=== PATIENT | female | born 1960 | race Two or more races ===

== ENCOUNTER 2023-12-12 17:37 | Inpatient (IN) | payer BC ==
[~2023-12-12] VITALS: Ht 175.3 cm; Wt 134.2 kg
[2023-12-12 20:17] LABS: Basophils # (auto) 0 10 ^3/uL (0-0.2); Basophils % (auto) 0.4 % (0.0-2.0); Eosinophils # (auto) 0.1 10 ^3/uL (0-0.8); Eosinophils % (auto) 1.1 % (0.0-7.0); Hematocrit 41.3 % (36.0-46.0); Hemoglobin 13.6 g/dL (12.2-16.2); Lymphocytes # (auto) 2.9 10 ^3/uL (0.4-5.4); Lymphocytes % (auto) 44.5 % (10.0-50.0); Mean Corpuscular Hemoglobin 29.4 pg (28.0-32.0); Mean Corpuscular Hgb Conc. 32.8 g/dL (32.0-36.0); Mean Corpuscular Volume 89.6 fL (80.0-100.0); Monocytes # (auto) 0.6 10 ^3/uL (0-1.3); Red Blood Cells 4.61 10^6/uL (4.0-5.20); White Blood Cell 6.6 10^3/uL (4.4-10.8)
[2023-12-12 20:32] LABS: Anion Gap 9 (5-15); Carbon Dioxide 25 mmol/L (20-30); Chloride 108 mmol/L (98-107); Potassium 3.8 mmol/L (3.5-5.1); Sodium 142 mmol/L (136-145)
[2023-12-12 20:38] LABS: BUN/Creatinine Ratio 8.4 (10.0-20.0); Blood Urea Nitrogen 7 mg/dL (9-23); Glucose 90 mg/dL (74-106)
[2023-12-12] MEDS ORDERED: ONDANSETRON HCL 4 MG/2 ML VIAL IV PRN (20:45)
[2023-12-12] MEDS ORDERED: MORPHINE SULFATE INJ 2 MG/ml SYRG IV PRN (20:45)
[2023-12-12 21:40] LABS: Urine Bacteria FEW /hpf (None Seen); Urine Blood Negative /uL (Negative); Urine Clarity Clear (Clear); Urine Color Light-Yellow (Yellow); Urine Protein, UAD Negative (Negative); Urine Specific Gravity 1.012 (1.001-1.035); Urine Urobilinogen Normal (Negative); Urine WBC 35 /hpf (0 - 5)
[2023-12-13] MEDS: ONDANSETRON HCL 4 MG/2 ML VIAL IV ONE (00:32)
[2023-12-13] MEDS: cefTRIAXone 1GM/50ML D5W 50 ML IV ONE (00:32)
[2023-12-13] MEDS: MORPHINE SULFATE 4 MG/ML SYR/VIAL IV ONE (00:33)
[2023-12-13 07:02] LABS: Basophils # (auto) 0 10 ^3/uL (0-0.2); Basophils % (auto) 0.3 % (0.0-2.0); Eosinophils # (auto) 0 10 ^3/uL (0-0.8); Eosinophils % (auto) 0.2 % (0.0-7.0); Hematocrit 40.5 % (36.0-46.0); Hemoglobin 13.3 g/dL (12.2-16.2); Lymphocytes % (auto) 27.4 % (10.0-50.0); Mean Corpuscular Hemoglobin 29.9 pg (28.0-32.0); Mean Corpuscular Hgb Conc. 32.9 g/dL (32.0-36.0); Mean Corpuscular Volume 90.8 fL (80.0-100.0); Monocytes # (auto) 0.3 10 ^3/uL (0-1.3); Monocytes % (auto) 4.6 % (0.0-12.0); Neutrophils # (auto) 4.9 10 ^3/uL (1.6-8.6); Neutrophils % (auto) 67.5 % (37.0-80.0); Nucleated Red Blood Cells % 0.1 %; Red Blood Cells 4.46 10^6/uL (4.0-5.20); Red Cell Distribution Width 15.2 % (11.8-14.3); White Blood Cell 7.2 10^3/uL (4.4-10.8)
[2023-12-13 07:27] LABS: Alanine Aminotransferase 22 U/L (7-40); Alkaline Phosphatase 81 U/L (46-116); Anion Gap 8 (5-15); BUN/Creatinine Ratio 5.9 (10.0-20.0); Blood Urea Nitrogen 5 mg/dL (9-23); Calcium 9.8 mg/dL (8.5-10.1); Carbon Dioxide 24 mmol/L (20-30); Chloride 106 mmol/L (98-107); Glucose 141 mg/dL (74-106); Sodium 138 mmol/L (136-145)
[2023-12-13 07:28] LABS: Albumin 4.5 g/dL (3.2-4.8)
[2023-12-13 07:29] LABS: Aspartate Aminotransferase 19 U/L (13-40); Bilirubin, Total 0.6 mg/dL (0.2-1.0); Total Protein 7.2 g/dL (5.7-8.2)
[2023-12-13 10:40] VITALS: PULSE 69; RESP 16; O2SAT 97
[2023-12-13] MEDS: cefTRIAXone 1GM/50ML D5W 50 ML IV SCH (11:46)
[2023-12-13 15:55] VITALS: BP 144/67; PULSE 77; RESP 18; TEMP 97.2; O2SAT 94
[2023-12-13] MEDS: metroNIDAZOLE 500MG/100ML 100 ML IV SCH (16:00)
[2023-12-13] MEDS ORDERED: PANT40TA2 PO (17:50)
[2023-12-13] MEDS ORDERED: ATOR40TA52 PO (17:50)
[2023-12-13 17:53] VITALS: BP 144/67; PULSE 77; RESP 18; TEMP 97.4; O2SAT 94
[2023-12-13 20:00] VITALS: BP 130/78; PULSE 74; PULSE 80; RESP 18; TEMP 98.6; O2SAT 96
[2023-12-13 21:00] VITALS: BP_SYST 125; BP_SYST 138; BP_DIAS 86; PULSE 76; PULSE 77; RESP 18; RESP 22; TEMP 98; TEMP 98.2; O2SAT 92; O2SAT 96
[2023-12-13] MEDS: PANTOPRAZOLE 40 MG TAB PO SCH (21:39)
[2023-12-14 00:44] VITALS: BP 124/61; PULSE 80; RESP 18; TEMP 97.4; O2SAT 96
[2023-12-14 05:00] VITALS: BP 124/73; PULSE 94; RESP 21; TEMP 98.9; O2SAT 95
[2023-12-14 06:13] LABS: Basophils # (auto) 0 10 ^3/uL (0-0.2); Basophils % (auto) 0.5 % (0.0-2.0); Eosinophils # (auto) 0.1 10 ^3/uL (0-0.8); Eosinophils % (auto) 1.5 % (0.0-7.0); Hematocrit 39.5 % (36.0-46.0); Lymphocytes # (auto) 2.4 10 ^3/uL (0.4-5.4); Lymphocytes % (auto) 43.7 % (10.0-50.0); Mean Corpuscular Hemoglobin 29.6 pg (28.0-32.0); Mean Corpuscular Hgb Conc. 32.8 g/dL (32.0-36.0); Mean Corpuscular Volume 90.4 fL (80.0-100.0); Monocytes # (auto) 0.5 10 ^3/uL (0-1.3); Monocytes % (auto) 9.6 % (0.0-12.0); Neutrophils # (auto) 2.5 10 ^3/uL (1.6-8.6); Neutrophils % (auto) 44.7 % (37.0-80.0); Nucleated Red Blood Cells % 0.1 %; Red Blood Cells 4.37 10^6/uL (4.0-5.20); Red Cell Distribution Width 14.8 % (11.8-14.3); White Blood Cell 5.6 10^3/uL (4.4-10.8)
[2023-12-14 06:22] LABS: Calcium 9.3 mg/dL (8.5-10.1); Chloride 108 mmol/L (98-107); Sodium 141 mmol/L (136-145)
[2023-12-14 06:23] LABS: Anion Gap 7 (5-15); Carbon Dioxide 26 mmol/L (20-30)
[2023-12-14 06:28] LABS: Glucose 96 mg/dL (74-106)
[2023-12-14 06:31] LABS: BUN/Creatinine Ratio 6.9 (10.0-20.0); Blood Urea Nitrogen < 5 mg/dL (9-23)
[2023-12-14 08:00] VITALS: RESP 18
[2023-12-14 08:11] VITALS: BP 104/49; PULSE 80; RESP 18; TEMP 97.4; O2SAT 94
[2023-12-14] MEDS ORDERED: METR-344 PO (11:21)
[2023-12-14 12:35] VITALS: BP 121/56; PULSE 88; RESP 18; TEMP 97.5; O2SAT 96
== END 2023-12-14 18:15 | disposition home or self-care (01) | DRG 392 ==
LOC: ER 17:37 → OVERFLOW 20:49 → EAST 12-13 15:53
PROVIDERS: ADMIT Nurse Practitioner Acute Care; ATTEND Nurse Practitioner Acute Care
DX: K52.9 Noninfective gastroenteritis and colitis, unspecified (principal); N39.0 Urinary tract infection, site not specified; Z68.41 Body mass index [BMI] 40.0-44.9, adult; K29.70 Gastritis, unspecified, without bleeding; E66.01 Morbid (severe) obesity due to excess calories; E78.5 Hyperlipidemia, unspecified; K62.89 Other specified diseases of anus and rectum; Z88.6 Allergy status to analgesic agent; Z79.899 Other long term (current) drug therapy; Z82.5 Family history of asthma and other chronic lower respiratory diseases
CPT/HCPCS: 36415; 74176; 76705; 80048; 80053; 81001; 82378; 83690; 85025; G0378; J2405; J3490